=== PATIENT | male | born 2000 | race Caucasian/White ===

== ENCOUNTER 2019-03-30 16:53 | Emergency (ER) | payer OTHER ==
[~2019-03-30] VITALS: Ht 188 cm; Wt 81.7 kg
[2019-03-30 17:09] VITALS: BP 131/87
[2019-03-30] MEDS ORDERED: KEFLEX500 M1 PO (17:51)
[2019-03-30] MEDS ORDERED: IBUPROFEN 600600 M1 PO (17:51)
== END 2019-03-30 17:55 | disposition home or self-care (01) ==
LOC: M.ERS 16:53
DX: S61.211A Laceration without foreign body of left index finger without damage to nail, initial encounter (principal); W26.8XXA Contact with other sharp object(s), not elsewhere classified, initial encounter; Y93.89 Activity, other specified; Y92.89 Other specified places as the place of occurrence of the external cause; Y99.8 Other external cause status